=== PATIENT | female | born 1975 | race Caucasian/White ===

== ENCOUNTER 2021-09-22 18:11 | Emergency (ER) | payer MEDICAID ==
[~2021-09-22] VITALS: Ht 149.9 cm; Wt 63.5 kg
[~2021-09-22 18:11] MED LIST: PREN-385 PO
[2021-09-22 18:30] VITALS: BP 130/74
[2021-09-22] MEDS ORDERED: PYR100 PO (19:44)
[2021-09-22] MEDS ORDERED: CEPH-588 PO (19:44)
[2021-09-22 21:20] VITALS: BP 132/73
--- NOTE | 2021-09-22 21:27 | NUR ---
Patient discharged with v/s stable. Written and verbal after care instructions given and explained. Patient alert, oriented and verbalized understanding of instructions. Ambulatory with steady gait. All questions addressed prior to discharge. ID band removed. Patient advised to follow up with PMD. Rx of KEFLEX AND PYRIDIUM given. Patient educated on indication of medication including possible reaction and side effects. Opportunity to ask questions provided and answered.
== END 2021-09-22 21:27 | disposition home or self-care (01) ==
LOC: MED 18:11
DX: N39.0 Urinary tract infection, site not specified (principal); I10 Essential (primary) hypertension; Z79.899 Other long term (current) drug therapy
CPT/HCPCS: 81002; 81025; 87086; 99283

== ENCOUNTER 2022-04-04 18:47 | Emergency (ER) | payer MEDICAID ==
[~2022-04-04] VITALS: Ht 143.5 cm; Wt 63.6 kg
[~2022-04-04 18:47] MED LIST changes: +CEPH-588 PO; +PYR100 PO
[2022-04-04 18:52] VITALS: BP 130/70
[2022-04-04] MEDS ORDERED: ONDANSETRON 4 MG ODT PO ONE (19:20)
[2022-04-04] MEDS ORDERED: KETOROLAC 30 MG/ML VIAL IM ONE (19:20)
--- NOTE | 2022-04-04 19:50 | NUR ---
Patient A/Ox4, chest rise and fall symmetrical, no s/s of distress.
[2022-04-04] MEDS ORDERED: cefTRIAXone 1,000 MG in LIDOCAINE MPF 1% 2.1 ML IM ONE (20:35)
[2022-04-04] MEDS ORDERED: PHEN-1877 PO (20:52)
[2022-04-04] MEDS ORDERED: CEPH-588 PO (20:52)
[2022-04-04] MEDS ORDERED: cefTRIAXone 1,000 MG VIAL ONE (21:23)
[2022-04-04] MEDS ORDERED: LIDOCAINE MPF 1% 5 ML ONE (21:23)
--- NOTE | 2022-04-04 21:45 | NUR ---
Patient A/Ox4, chest rise and fall symmetrical, no s/s of distress.
[2022-04-04 21:56] VITALS: BP 118/68
[2022-04-04 21:59] LABS: APPEARANCE,URINE CLEAR (CLEAR); BILIRUBIN,URINE NEGATIVE (NEGATIVE); BLOOD, URINE TRACE-I (NEGATIVE); COLOR,URINE YELLOW (YELLOW); LEUKOCYTE ESTERASE ,URINE NEGATIVE (NEGATIVE); NITRITE, URINE NEGATIVE (NEGATIVE); UGLUCOSE NEGATIVE (NEGATIVE)
[2022-04-04 22:13] LABS: RBC,URINE 0-5 /HPF (0-5); WBC,URINE 0-5 /HPF (0-5)
== END 2022-04-04 21:56 | disposition home or self-care (01) ==
LOC: MED 18:47
DX: N39.0 Urinary tract infection, site not specified (principal); I10 Essential (primary) hypertension; Z79.899 Other long term (current) drug therapy
CPT/HCPCS: 81001; 81025; 87086; 96372; 99285; J0696; J1885; J2001; Q0162